=== PATIENT | female | born 1965 | race Caucasian/White ===

== ENCOUNTER 2018-03-19 17:32 | Outpatient (CLI) | payer OTHER ==
--- NOTE | 2018-03-20 13:15 | Ultrasound Report ---
Reason: MENORRHAGIA Procedure Date: 03/19/2018 Accession Number: [id number] / [id number] Procedure: US - Pelvic w/Transvaginal CPT Code: FULL RESULT: EXAM: PELVIC ULTRASOUND EXAM DATE: 03/19/2018 05:48 PM. CLINICAL HISTORY: Menorrhagia. COMPARISON: None. TECHNIQUE: Realtime transabdominal pelvic scan performed to identify the uterus and adnexa and as an overview of other pelvic structures, followed by transvaginal scan to provide greater detail of the uterus and adnexa, with static image documentation. FINDINGS: Uterus: 8.5 x 7.3 x 6.2 cm, volume 201 cc. Retroverted position. Normal overall size and echotexture. Masses: None. Endometrium: 17 mm. Cervix: Unremarkable. Right Ovary: 1.8 x 1.2 x 1.5 cm, volume 1.7 cc. Normal echotexture and blood flow. Left Ovary: 6.8 x 3.7 x 4.6 cm, volume 60.5 cc. The left ovary contains a septated multicystic mass which measures 4.7 x 2.6 x 4.0 cm and demonstrates vascularity within the septa. Free Fluid: A small amount of free fluid is seen in the cul-de-sac. Other: None. IMPRESSION: Cystic left ovarian mass. Recommend gynecologic evaluation for consideration of laparoscopy. RADIA
== END 2018-03-19 17:33 | disposition home or self-care (01) ==
LOC: DI 17:32
PROVIDERS: ATTEND Nurse Practitioner Family
DX: N92.0 Excessive and frequent menstruation with regular cycle (principal); D39.12 Neoplasm of uncertain behavior of left ovary
CPT/HCPCS: 76830; 76856

== ENCOUNTER 2018-04-04 11:24 | Outpatient (CLI) | payer OTHER ==
--- NOTE | 2018-04-06 08:39 | Mammography Report ---
Reason: SCREENING MAMMO Procedure Date: 04/04/2018 Accession Number: [id number] / [id number] Procedure: [facility] - Screening Mammo w/[facility] CPT Code: FULL RESULT: EXAM: Screening Mammo w/[facility] DATE: 04/04/2018 11:48 AM CLINICAL HISTORY: 52-year-old female with history of late childbearing for screening. TECHNIQUE: Bilateral CC and MLO views were obtained. COMPARISON: 01/13/2016, 09/03/2014, 05/11/2013, 03/12/2011. FINDINGS: The breasts demonstrate heterogeneously dense fibroglandular parenchyma bilaterally. Morphologically normal-appearing stable intramammary lymph nodes are seen bilaterally, typically benign finding. No suspicious masses, clustered microcalcifications, or regions of architectural distortion are identified. IMPRESSION: Benign findings RECOMMENDATION: Routine annual screening unless otherwise clinically indicated. BIRADS CATEGORY 2: Benign findings STANDARD QUALIFYING STATEMENTS: 1. This examination was not reviewed with the aid of Computer-Aided Detection (CAD). 2. A negative or benign imaging report should not delay biopsy if clinically suspicious findings are present. Consider surgical consultation if warranted. More than 5% of cancers are not identified by imaging. 3. Dense breasts may obscure an underlying neoplasm. 4. This examination was reviewed with the aid of 3D breast imaging (tomosynthesis).
== END 2018-04-04 11:25 | disposition home or self-care (01) ==
LOC: DI 11:24
PROVIDERS: ATTEND Physician Assistant
DX: Z12.31 Encounter for screening mammogram for malignant neoplasm of breast (principal)
CPT/HCPCS: 77063; 77067

== ENCOUNTER 2018-06-09 15:17 | Outpatient (CLI) | payer OTHER ==
--- NOTE | 2018-06-10 22:29 | Ultrasound Report ---
Reason: COMPLEX CYST OF UTERINE ADNEXA Procedure Date: 06/09/2018 Accession Number: [id number] / [id number] Procedure: US - Pelvic w/Transvaginal CPT Code: FULL RESULT: EXAM: PELVIC ULTRASOUND. EXAM DATE: 06/09/2018 03:58 PM. CLINICAL HISTORY: Complex cyst of uterine adnexa. COMPARISON: 03/19/2018 5:48 PM. TECHNIQUE: Realtime transabdominal pelvic scan performed to identify the uterus and adnexa and as an overview of other pelvic structures, followed by transvaginal scan to provide greater detail of the uterus and adnexa, with static image documentation. FINDINGS: Uterus: 8.4 x 5.7 x 5.3 cm, volume 132 cc. Retroverted and retroflexed position. Normal overall size and echotexture. Masses: [employer] fibroids include the followin. 2.2 x 1.8 x 1.6 cm posterior fundal partially calcified intramural fibroid. 2. 1.5 x 1.4 x 1.2 cm anterior uterine body/fundal intramural fibroid. Endometrium: 7.7 mm. No endometrial mass or polyp. Cervix: Unremarkable. Right Ovary: 1.7 x 1.3 x 1.6 cm, volume 1.8 cc. Normal echotexture and blood flow. Left Ovary: 3.4 x 2.4 x 2.2 cm, volume 9.3 cc. Normal echotexture and blood flow. 2.7 x 1.5 x 1.1 cm anechoic left ovarian cyst. No mural nodules or thickened septations. Previously measuring 4.7 x 2.6 x 4 cm. Previous cyst was multicystic with a second daughter cyst. Free Fluid: Small amount of free fluid noted in the pelvis. Other: None. IMPRESSION: 1. 2.7 cm residual left ovarian simple cyst. No concerning features. No mural nodules or thickened septations. Otherwise, both ovaries and adnexa are normal. 2. Multiple intramural uterine fibroids are noted. See above. 3. No endometrial mass or polyp. RADIA
== END 2018-06-09 15:18 | disposition home or self-care (01) ==
LOC: DI 15:17
PROVIDERS: ATTEND Obstetrics & Gynecology
DX: D25.1 Intramural leiomyoma of uterus (principal); N83.8 Other noninflammatory disorders of ovary, fallopian tube and broad ligament; N83.292 Other ovarian cyst, left side
CPT/HCPCS: 76830; 76856

== ENCOUNTER 2019-05-31 07:30 | Outpatient (CLI) | payer OTHER ==
--- NOTE | 2019-05-31 08:20 | Mammography Report ---
Reason: ROUTINE MAMMO Procedure Date: 05/31/2019 Accession Number: [id number] / [id number] Procedure: [facility] - Screening Mammo Dig Bilat CPT Code: Final Report FULL RESULT: EXAM: Screening Mammo Dig Bilat DATE: 05/31/2019 7:54 AM CLINICAL HISTORY: Screening encounter. History of late childbearing. TECHNIQUE: (B) - Bilateral CC, laterally exaggerated CC, MLO views were obtained. COMPARISON: 04/04/2018 through 03/12/2011. PARENCHYMAL PATTERN: (A) - The breast(s) demonstrate(s) scattered fibroglandular densities. FINDINGS: There are no suspicious masses, calcifications, or areas of distortion. IMPRESSION: Negative examination. BI-RADS category 1. RECOMMENDATION: (ANNUAL) - Recommend routine annual screening mammography. BI-RADS CATEGORY: (1) - Negative. STANDARD QUALIFYING STATEMENTS: 1. This examination was reviewed with the aid of Computer-Aided Detection (CAD). 2. A negative or benign imaging report should not preclude biopsy if clinically suspicious findings are present. 3. Dense breasts may obscure an underlying neoplasm. 4. This examination was reviewed without the aid of 3D breast imaging (tomosynthesis).
== END 2019-05-31 07:31 | disposition home or self-care (01) ==
LOC: DI.S 07:30
DX: Z12.31 Encounter for screening mammogram for malignant neoplasm of breast (principal)
CPT/HCPCS: 77067

== ENCOUNTER 2020-08-26 07:44 | Outpatient (CLI) | payer OTHER ==
--- NOTE | 2020-08-27 15:19 | Mammography Report ---
BILATERAL DIGITAL SCREENING MAMMOGRAM 3D/2D WITH EXAGGERATED CC: 08/26/2020 CLINICAL: Routine screening. Comparison is made to exams dated: 05/31/2019 mammogram, 04/04/2018 mammogram, 01/13/2016 mammogram, a nd 09/03/2014 mammogram - [facility]. There are scattered fibroglandular elements i n both breasts. No significant masses, calcifications, or other findings are seen in either breast. There has been no significant interval change. IMPRESSION: NEGATIVE There is no mammographic evidence of malignancy. A 1 year screening mammogram is recommended. This exam was interpreted at Station ID: [id number]. NOTE: For mammograms, a report in lay terms will be sent to the patient. Approximately 15% of breast malignancies will not be visualized mammographically. In the management of a palpable breast mass, a negative mammogram must not discourage biopsy of a clinically suspicious lesion. Electronically Signed By: Eric Khan M.D. slc/penrad:08/26/2020 11:08:09 ACR BI-RADS Category 1: Negative 3341F PARENCHYMAL PATTERN: (A) - The breast(s) demonstrate(s) scattered fibroglandular densities. BI-RADS CATEGORY: (1) - 1 RECOMMENDATION: (ANNUAL) - Recommend routine annual screening mammography. [id number] 1 year screening LATERALITY: (B)
== END 2020-08-26 07:45 | disposition home or self-care (01) ==
LOC: DI.S 07:44
PROVIDERS: ATTEND Nurse Practitioner Family
DX: Z12.31 Encounter for screening mammogram for malignant neoplasm of breast (principal)

== ENCOUNTER 2023-03-28 13:14 | Outpatient (CLI) | payer BC ==
--- NOTE | 2023-03-29 16:06 | Mammography Report ---
BILATERAL DIGITAL SCREENING MAMMOGRAM 3D/2D WITH EXAGGERATED CC: 03/28/2023 CLINICAL: Routine screening. Comparison is made to exams dated: 08/26/2020 mammogram, 05/31/2019 mammogram, and 04/04/2018 mammogra m - [facility]. There are scattered areas of fibroglandular density in both breasts (category b / 25%-50% glandular t issue). No significant masses, calcifications, or other findings are seen in either breast. There has been no significant interval change. IMPRESSION: NEGATIVE There is no mammographic evidence of malignancy. A 1 year screening mammogram is recommended. Based on the Tyrer Cuzick model (a risk assessment model) the patients lifetime risk is 10.6% and he r 10 year risk is 4.2%. According to the ACR, ACS, and NCCN guidelines, an annual breast MRI exam juvenal ng with mammogram is recommended if the patients lifetime risk is 20% or greater. This exam was interpreted at Station ID: [id number]. NOTE: For mammograms, a report in lay terms will be sent to the patient. Approximately 15% of breast malignancies will not be visualized mammographically. In the management of a palpable breast mass, a negative mammogram must not discourage biopsy of a clinically suspicious lesion. Electronically Signed By: Eric costa/[email or web address]:03/28/2023 19:01:31 letter sent: No_Letter ACR BI-RADS Category 1: Negative 3341F PARENCHYMAL PATTERN: (A) - The breast(s) demonstrate(s) scattered fibroglandular densities. BI-RADS CATEGORY: (1) - 1 Mammogram [id number] 1 year screening LATERALITY: (B)
== END 2023-03-28 13:15 | disposition home or self-care (01) ==
LOC: DI.S 13:14
DX: Z12.31 Encounter for screening mammogram for malignant neoplasm of breast (principal); R92.323 Mammographic fibroglandular density, bilateral breasts